=== PATIENT | male | born 1945 | race Caucasian/White ===

== ENCOUNTER 2019-07-21 11:34 | Outpatient (RCR) | payer MEDICARE, SELFPAY ==
[2019-04-29 14:50] LABS: INR 3.9; Prothrombin Time 38.8 Seconds (9.64-11.0)
[2019-05-18 10:26] LABS: INR 2.4; Prothrombin Time 24.1 Seconds (9.64-11.0)
[2019-06-16 10:56] LABS: Prothrombin Time 20.6 Seconds (9.64-11.0)
[2019-07-21 12:03] LABS: Prothrombin Time 30.1 Seconds (9.64-11.0)
== END 2019-07-28 23:59 | disposition home or self-care (01) ==
LOC: CHSLAB 11:34
PROVIDERS: PCP Family Medicine; Visit Provider Specialist
DX: Z79.01 Long term (current) use of anticoagulants (principal); I48.20 Chronic atrial fibrillation, unspecified
CPT/HCPCS: 36415; 85610

== ENCOUNTER 2019-11-16 07:34 | Outpatient (RCR) | payer MEDICARE, SELFPAY ==
[2019-08-20 11:04] LABS: INR 2.5; Prothrombin Time 25.1 Seconds (9.64-11.0)
[2019-09-18 10:22] LABS: INR 2.6; Prothrombin Time 25.8 Seconds (9.64-11.0)
[2019-10-28 11:34] LABS: INR 3.4; Prothrombin Time 34.1 Seconds (9.64-11.0)
[2019-11-16 08:00] LABS: INR 3.1; Prothrombin Time 30.8 Seconds (9.64-11.0)
== END 2019-11-18 23:59 | disposition home or self-care (01) ==
LOC: CHSLAB 07:34
PROVIDERS: PCP Family Medicine; Visit Provider Specialist
DX: Z79.01 Long term (current) use of anticoagulants (principal); I48.91 Unspecified atrial fibrillation
CPT/HCPCS: 36415; 85610

== ENCOUNTER 2020-02-03 08:07 | Outpatient (RCR) | payer MEDICARE, SELFPAY ==
[2019-12-09 09:36] LABS: INR 2.8; Prothrombin Time 28.2 Seconds (9.64-11.0)
[2020-01-06 10:55] LABS: INR 1.6; Prothrombin Time 17.1 Seconds (9.50-12.10)
[2020-01-27 07:44] LABS: Prothrombin Time 40.9 Seconds (9.50-12.10)
[2020-02-03 08:37] LABS: INR 3.2; Prothrombin Time 33.5 Seconds (9.50-12.10)
== END 2020-03-08 23:59 | disposition home or self-care (01) ==
LOC: CHSLAB 08:07
PROVIDERS: PCP Family Medicine; Visit Provider Specialist
DX: I48.20 Chronic atrial fibrillation, unspecified (principal); Z79.01 Long term (current) use of anticoagulants
CPT/HCPCS: 36415; 85610

== ENCOUNTER 2020-08-18 09:04 | Outpatient (RCR) | payer MEDICARE, SELFPAY ==
[2020-06-15 09:56] LABS: Prothrombin Time 20.9 Seconds (9.50-12.10)
[2020-07-13 10:31] LABS: INR 2.5; Prothrombin Time 25.1 Seconds (9.50-12.10)
[2020-08-18 09:26] LABS: INR 2.4; Prothrombin Time 24.2 Seconds (9.50-12.10)
== END 2020-09-13 23:59 | disposition home or self-care (01) ==
LOC: CHSLAB 09:04
PROVIDERS: PCP Family Medicine; Visit Provider Specialist
DX: I48.91 Unspecified atrial fibrillation (principal); Z51.81 Encounter for therapeutic drug level monitoring; Z79.01 Long term (current) use of anticoagulants
CPT/HCPCS: 36415; 85610

== ENCOUNTER 2020-11-15 10:22 | Outpatient (RCR) | payer MEDICARE, SELFPAY ==
[2020-09-20 10:44] LABS: INR 2.4; Prothrombin Time 24.3 Seconds (9.50-12.10)
[2020-11-01 10:07] LABS: INR 1.6; Prothrombin Time 16.3 Seconds (9.50-12.10)
[2020-11-15 10:48] LABS: INR 2.6; Prothrombin Time 26.9 Seconds (9.50-12.10)
== END 2020-12-19 23:59 | disposition home or self-care (01) ==
LOC: CHSLAB 10:22
PROVIDERS: PCP Family Medicine; Visit Provider Specialist
DX: I48.91 Unspecified atrial fibrillation (principal)
CPT/HCPCS: 36415; 85610

== ENCOUNTER 2021-01-18 10:03 | Outpatient (RCR) | payer MEDICARE, SELFPAY ==
[2020-12-20 10:37] LABS: INR 3.9; Prothrombin Time 38.7 Seconds (9.50-12.10)
[2021-01-18 10:48] LABS: INR 2.7; Prothrombin Time 27.9 Seconds (9.50-12.10)
== END 2021-03-20 23:59 | disposition home or self-care (01) ==
LOC: CHSLAB 10:03
PROVIDERS: PCP Family Medicine; Visit Provider Specialist
DX: I48.91 Unspecified atrial fibrillation (principal)
CPT/HCPCS: 36415; 85610

== ENCOUNTER 2021-10-09 08:30 | Outpatient (CLI) | payer MEDICARE, SELFPAY ==
[2021-10-09 18:26] LABS: Basophils Absolute Auto 0.1 K/mm3 (0.0-0.1); Basophils Percent Auto 0.7 % (0.2-1.2); Eosinophils Absolute Auto 0.3 K/mm3 (0-0.3); Eosinophils Percent Auto 3.6 % (0-4.4); Hematocrit 44.6 % (42.0-52.0); Hemoglobin 14.4 g/dL (14.0-18.0); Immature Granulocyte Absolute 0.06 K/mm3 (0.00-0.031); Immature Granulocyte Percent A 0.7 % (0-0.5); Lymphocytes Absolute Auto 1.54 K/mm3 (0.9-3.2); Lymphocytes Percent Auto 18.6 % (18.3-44.2); Mean Corpuscular HGB Conc 32.3 g/dl (32-36); Mean Corpuscular Hemoglobin 30.7 pg (26-34); Mean Corpuscular Volume 95.1 fl (80-100); Mean Platelet Volume 10.1 fl (7.4-10.4); Monocytes Absolute Auto 0.8 K/mm3 (0.1-0.6); Monocytes Percent Auto 9.9 % (2.6-8.5); Neutrophils Absolute Auto 5.5 K/mm3 (1.3-6.7); Neutrophils Percent Auto 66.5 % (45.5-73.1); Platelet Count Result 316 k/mm3 (150-375); Red Blood Count 4.69 M/mm3 (4.6-6.20); White Blood Count 8.3 K/mm3 (4.5-10.0)
[2021-10-09 19:56] LABS: Vitamin D 25 Hydroxy 54.8 ng/mL
[2021-10-09 20:14] LABS: Alanine Aminotransferase 23 U/L (6-50); Albumin Level 4.5 g/dL (3.5-5.1); Alkaline Phosphatase 53 U/L (38-126); Anion Gap 7 mmol/L (8-16); Aspartate Amino Transferase 43 U/L (17-59); Bilirubin,Total 0.6 mg/dL (0.2-1.3); Blood Urea Nitrogen 26 mg/dL (9-20); Calcium 9.4 mg/dL (8.4-10.2); Carbon Dioxide 25 mmol/L (22-30); Chloride 103 mmol/L (98-107); Cholesterol 133 mg/dL (0-200); Estimated Glomerular Filt Rate > 60; Glucose 108 mg/dL (65-110); HDL Direct 37 mg/dL; Potassium 4.4 mmol/L (3.4-5.0); Sodium 135 mmol/L (137-145); Triglycerides 143 mg/dL (<150)
[2021-10-09 20:25] LABS: LDL Cholesterol Direct 57 mg/dL
== END 2021-10-09 08:31 | disposition home or self-care (01) ==
LOC: ANHGOSHLAB 08:32
PROVIDERS: PCP Family Medicine; Visit Provider Nurse Practitioner
DX: E55.9 Vitamin D deficiency, unspecified (principal); E78.5 Hyperlipidemia, unspecified; I10 Essential (primary) hypertension
CPT/HCPCS: 36415; 80053; 80061; 82306; 85025

== ENCOUNTER 2022-05-30 12:32 | Outpatient (CLI) | payer MEDICARE, SELFPAY ==
[2022-05-30 20:44] LABS: Alanine Aminotransferase 29 U/L (6-50); Albumin Level 4.3 g/dL (3.5-5.1); Alkaline Phosphatase 55 U/L (38-126); Anion Gap 11 mmol/L (8-16); Aspartate Amino Transferase 36 U/L (17-59); Bilirubin,Total 0.6 mg/dL (0.2-1.3); Blood Urea Nitrogen 26 mg/dL (9-20); Calcium 9.7 mg/dL (8.4-10.2); Carbon Dioxide 22 mmol/L (22-30); Chloride 103 mmol/L (98-107); Estimated Glomerular Filt Rate > 60; Glucose 110 mg/dL (65-110); Potassium 3.9 mmol/L (3.4-5.0); Sodium 136 mmol/L (137-145)
== END 2022-05-30 12:33 | disposition home or self-care (01) ==
LOC: ANHGOSHLAB 12:33
PROVIDERS: PCP Family Medicine; Visit Provider Family Medicine
DX: I10 Essential (primary) hypertension (principal); Z79.899 Other long term (current) drug therapy
CPT/HCPCS: 36415; 80053

== ENCOUNTER → 2022-05-30 12:42 | Outpatient (CLI) | payer MEDICARE, SELFPAY ==
--- NOTE | ~2022-05-30 | XR_ITS ---
EXAMINATION: XR chest 2V DATE: 05/30/2022 12:54 INDICATION: Cough and shortness of breath TECHNIQUE: PA and lateral views of the chest were obtained. COMPARISON: None FINDINGS: Opacities in the right mid and lower lung zone consistent with moderate to large right pleural effusi on and associated atelectasis and/or pneumonia. The pleural effusion also extends extends along the p eriphery of the right upper lobe and to the apex. Mild linear discoid atelectasis at the left lower l romulo zone. No other airspace opacities, pulmonary edema, pneumothorax or left-sided pleural effusion. Heart size is normal. Mild to moderate thoracic spondylosis. IMPRESSION: 1. Unilateral moderate to large right pleural effusion with associated dependent compressive atelecta sis. Underlying pneumonia, malignancy or pulmonary infarct as etiology for the pleural effusion canno t be excluded. Consider diagnostic thoracentesis. Reviewed, dictated and finalized at location A. IMPRESSION: 1. Unilateral moderate to large right pleural effusion with associated dependen t compressive atelectasis. Underlying pneumonia, malignancy or pulmonary infarc t as etiology for the pleural effusion cannot be excluded. Consider diagnostic thoracentesis.
== END ==
PROVIDERS: PCP Family Medicine; Visit Provider Family Medicine
DX: R05.9 Cough, unspecified (principal); J90 Pleural effusion, not elsewhere classified
CPT/HCPCS: 71046

== ENCOUNTER 2022-05-30 16:43 | Emergency (ER) | payer MEDICARE, SELFPAY ==
[2022-05-30] VITALS (9 sets, daily range): BP systolic 104–130; BP diastolic 63–85; PULSE 60–83; RESP 18–22; O2SAT 95–97
--- NOTE | ~2022-05-30 | CT_ITS ---
EXAMINATION: CTA chest PE protocol DATE: 05/30/2022 17:33 CDT INDICATION: Large pleural effusion. TECHNIQUE: Computed tomographic angiography (CTA) of the chest was performed with 100 mL Omnipaque-35 0 intravenous contrast. The dose-length product was 378.02 mGy-cm. Maximum intensity projection 3D-re constructions of the aorta and other arteries were constructed by the technologist on a separate work station. Automated exposure control and iterative reconstruction technique were employed. COMPARISON: Chest x-ray dated 05/30/2022. FINDINGS: There is a moderate right pleural effusion with loculated margins and pleural enhancement, suspicious for empyema. There is consolidation of the right lower lobe. Study is technically adequate without evidence for pulmonary embolism. No left pleural effusion. No pneumothorax. Borderline heart size. There is atherosclerosis of the aorta and coronary arteries. No thoracic lymphadenopathy. Ther e is left basilar atelectasis. There is a 6 mm left lower lobe nodule. There is left lower lobe atele ctasis. There is severe thoracic spondylosis. IMPRESSION: 1. No evidence for pulmonary embolism. 2: Moderate right pleural effusion with pleural thickening, loculated margins and pleural enhancement , suspicious for empyema. 3: Consolidation of the right lower lobe may represent atelectasis and/or pneumonia. 4: Left lower lobe nodule measuring 6 mm. Recommend follow-up low dose CT chest in 6 months. Reviewed, dictated and finalized at location A. IMPRESSION: 1. No evidence for pulmonary embolism. 2: Moderate right pleural effusion with pleural thickening, loculated margins a nd pleural enhancement, suspicious for empyema. 3: Consolidation of the right lower lobe may represent atelectasis and/or pneum onia. 4: Left lower lobe nodule measuring 6 mm. Recommend follow-up low dose CT chest in 6 months.
--- NOTE | 2022-05-30 16:47 | ECG_ITS ---
Measurements Intervals [place] Rate: 78 P: [place]: 0 QRS: 4 QRSD: 106 T: 55 QT: 382 QTc: 437 Interpretive Statements ATRIAL FIBRILLATION NONSPECIFIC ST & T-WAVE ABNORMALITY ABNORMAL RHYTHM ECG NO PREVIOUS ECG AVAILABLE FOR COMPARISON Electronically Signed On 05-31-2022 18:13:07 CDT by Sidney Eden M.D.
[2022-05-30 17:05] LABS: Basophils Absolute Auto 0.1 K/mm3 (0.0-0.1); Basophils Percent Auto 0.7 % (0.2-1.2); Eosinophils Absolute Auto 0.2 K/mm3 (0-0.3); Eosinophils Percent Auto 2.5 % (0-4.4); Hematocrit 38.6 % (42.0-52.0); Hemoglobin 13.1 g/dL (14.0-18.0); Immature Granulocyte Absolute 0.05 K/mm3 (0.00-0.031); Immature Granulocyte Percent A 0.6 % (0-0.5); Lymphocytes Absolute Auto 1.69 K/mm3 (0.9-3.2); Lymphocytes Percent Auto 18.9 % (18.3-44.2); Mean Corpuscular HGB Conc 33.9 g/dl (32-36); Mean Corpuscular Hemoglobin 31.3 pg (26-34); Mean Corpuscular Volume 92.1 fl (80-100); Monocytes Percent Auto 10.6 % (2.6-8.5); Neutrophils Percent Auto 66.7 % (45.5-73.1); Platelet Count Result 365 k/mm3 (150-375); Red Blood Count 4.19 M/mm3 (4.6-6.20); Red Cell Distribution Width 13.8 % (11.5-14.5)
--- NOTE | 2022-05-30 17:05 | PC.NURSE ---
pt states he was sent here because he had cxr done today and it was abnormal. c/o sob x 2 months and productive cough. denies fever.
[2022-05-30 17:14] LABS: Alanine Aminotransferase 28 U/L (6-50); Albumin Level 4.4 g/dL (3.5-5.1); Alkaline Phosphatase 47 U/L (38-126); Anion Gap 8 mmol/L (8-16); Aspartate Amino Transferase 33 U/L (17-59); Bilirubin,Total 0.8 mg/dL (0.2-1.3); Blood Urea Nitrogen 28 mg/dL (9-20); Calcium 9.4 mg/dL (8.4-10.2); Carbon Dioxide 26 mmol/L (22-30); Chloride 102 mmol/L (98-107); Estimated CRCL calculation 52 ml/min; Estimated Glomerular Filt Rate > 60; Glucose 133 mg/dL (65-110); Potassium 3.8 mmol/L (3.4-5.0); Sodium 136 mmol/L (137-145)
[2022-05-30 17:20] LABS: Magnesium 1.6 mg/dL (1.6-2.3)
--- NOTE | 2022-05-30 17:24 | ED.SOB ---
HPI - SOB/Dyspnea General Chief Complaint: Shortness of Breath/Dyspnea <Billie Lerma PA-C - Last Filed: 05/31/22 02:28> Stated Complaint: SOB <Billie Lerma PA-C - Last Filed: 05/31/22 02:28> Time Seen by Provider: 05/30/22 16:57 <Billie Lerma PA-C - Last Filed: 05/31/22 02:28> History of Present Illness HPI Narrative: Patient is a 76-year-old male with a history of atrial fibrillation on warfarin here due to productive cough and shortness of breath over the past 2 months. Patient states that he has felt short of breath on minimal exertion and has had a cough productive of purulent sputum. When he coughs he has a pain in the center of his chest, but no pain at rest. He saw his primary care doctor today who ordered a chest x-ray, and he was found he had a large right-sided pleural effusion. He was told to come to the ED for a thoracentesis. Patient denies any smoking history. He has had no leg swelling, fevers or chills, nausea or vomiting, abdominal pain or rash. <Billie Lerma PA-C - Last Filed: 05/31/22 02:28> Related Data Home Medications: Home Medications Medication Instructions Recorded Confirmed brimonidine 0.1 % eye drops 1 drop ophthalmic (eye) Q8H 09/30/19 05/30/22 (Alphagan P) finasteride 5 mg tablet 5 mg PO DAILY 09/30/19 05/30/22 tamsulosin 0.4 mg capsule 0.4 mg PO DAILY 09/30/19 05/30/22 digoxin 250 mcg (0.25 mg) tablet 250 mcg PO DAILY 10/06/20 05/30/22 omega-3 fatty acids 1,000 mg 1,000 mg PO DAILY 10/06/20 05/30/22 capsule (Fish Oil Concentrate) warfarin 2 mg tablet 3 mg PO DAILY 10/06/20 05/30/22 fenofibrate 160 mg tablet 160 mg PO DAILY 05/30/22 05/30/22 losartan 100 1 tablet PO DAILY 05/30/22 05/30/22 mg-hydrochlorothiazide 25 mg tablet metoprolol succinate 200 mg 200 mg PO DAILY 05/30/22 05/30/22 tablet,extended release 24 hr <Billie Lerma PA-C - Last Filed: 05/31/22 02:28> Allergies/Adverse Reactions: Allergies Allergy/AdvReac Type Severity Reaction Status Date / Time No Known Allergies Allergy Verified 05/30/22 16:58 <Billie Lerma PA-C - Last Filed: 05/31/22 02:28> Review of Systems Review of Systems: All systems reviewed & are unremarkable except as noted in HPI and below <Billie Lerma PA-C - Last Filed: 05/31/22 02:28> [facility] Past Medical History Medical History: Medical History BPH w/o urinary obs/LUTS Chronic atrial fibrillation (~02/28/01) Chronic diarrhea Chronic low back pain without sciatica Collagenous colitis Dyslipidemia Essential (primary) hypertension Glaucoma History of COVID-19 01/2020 History of renal calculi Hx of colonic polyps Hx-TIA (transient ischemic attack) (~10/31/09) 2009 <Billie Lerma PA-C - Last Filed: 05/31/22 02:28> Surgical History Surgical History: Surgical History History of eye surgery (~1979) left - 1980s History of lumbar laminectomy (~04/2004) 04/2004 <Billie Lerma PA-C - Last Filed: 05/31/22 02:28> Family History Family History: Family History Other Carcinoma of colon Family history of coronary artery disease <Billie Lerma PA-C - Last Filed: 05/31/22 02:28> Social History Social History: Social History Smoking status: Never smoker Second hand tobacco smoke exposure: No Alcohol intake: current Alcohol use details: socially Substance use: never Substance use type: does not use Lack of Transportation: No Lack of Food: Never True Current Housing: I Have Housing Concerned About Future Housing: No Difficulty Paying Gas/Electric Bills: No Difficulty Paying for Meds: No Currently Unemployed: No Education: [employer]
[2022-05-30 17:30] LABS: INR 3.2; Prothrombin Time 31.9 Seconds (11.1-14.7)
[2022-05-30 17:31] LABS: NT Pro B Type Natriuretic Pept 920 pg/mL (19.9-100); Troponin I < 0.012 ng/mL (0.000-0.034)
[2022-05-30 17:31] LABS: Partial Thromboplastin Time 54.8 SECONDS (22.3-36.8)
[2022-05-30 18:25] LABS: Influenza A QL RT-PCR Negative (Negative); Influenza B QL RT-PCR Negative (Negative); SARS-CoV-2 RNA PCR Negative (Negative)
[2022-05-30] MEDS: PIPERACILLN/TAZ 3.375GM/NS50ML 3.375 GM/50 ML BAG IVPB (18:43)
[2022-05-31] VITALS (31 sets, daily range): BP systolic 122–129; BP diastolic 72–100; PULSE 56–81; RESP 17–29; TEMP 36.5; O2SAT 94–100
[2022-05-31 01:07] LABS: Digoxin < 0.4 ng/mL (0.8-2.0)
[2022-05-31] MEDS: cefTRIAXone 2 GM/NS 100 ML 2 GM/100 ML BAG IVPB (03:24)
[2022-05-31] MEDS: metroNIDAZOLE 500 MG/ISO 100ML 500 MG/100 ML BAG 100 MG IVPB (03:26)
--- NOTE | 2022-05-31 08:50 | PC.NURSE ---
Report given to BONITA Bliss from [facility] for direct admit. ETA for ALS ambulance is around 1100.
--- NOTE | 2022-05-31 08:59 | PC.NURSE ---
Patient ambulatory with no complaints of SOB or distress while ambulating.
== END 2022-05-31 09:01 | disposition short-term general hospital (02) ==
PROVIDERS: Emergency Medicine; Emergency Provider Physician Assistant; PCP Family Medicine
DX: J86.9 Pyothorax without fistula (principal); I48.20 Chronic atrial fibrillation, unspecified; I10 Essential (primary) hypertension; E78.5 Hyperlipidemia, unspecified; N40.1 Benign prostatic hyperplasia with lower urinary tract symptoms; N13.8 Other obstructive and reflux uropathy; H40.9 Unspecified glaucoma; Z86.16 Personal history of COVID-19; Z86.010 Personal history of colon polyps; Z86.73 Personal history of transient ischemic attack (TIA), and cerebral infarction without residual deficits; Z79.01 Long term (current) use of anticoagulants; R94.31 Abnormal electrocardiogram [ECG] [EKG]
CPT/HCPCS: 36415; 71275; 80053; 80162; 83735; 83880; 84484; 85025; 85610; 85730; 87040; 87636; 93005; 96365; 96367; 99285; J0696; J2543; Q9967

== ENCOUNTER 2022-06-22 14:33 | Emergency (ER) | payer MEDICARE, SELFPAY ==
--- NOTE | ~2022-06-22 | CT_ITS ---
EXAMINATION: CT brain wo con DATE: 06/22/2022 14:41 INDICATION: Slurred speech and left-sided loss of coordination TECHNIQUE: Computed tomography (CT) of the head was performed without intravenous contrast. Sagittal and coronal reconstructions were performed. The mA was adjusted according to patient size. Iterative reconstruction technique was employed. The dose-length product was 605.33 mGy-cm. COMPARISON: Brain MR dated 11/08/2009 FINDINGS: Small regions of encephalomalacia at the left parietal lobe and a couple very small regions of enceph alomalacia at the posterior left insula and adjacent temporal lobe along the inferior side of the john vian fissure consistent with chronic infarcts which are new since the prior MRI imaging. There is add itional mild scattered white matter hypoattenuation consistent with chronic small vessel ischemic dis ease. No acute intracranial hemorrhage, acute infarction or abnormal extra axial fluid collection. Ve ntricles are normal and symmetric. No mass/mass effect. Changes of bilateral intraocular lens replace ment. The orbits, paranasal sinuses and mastoid air cells are normal. Intracranial calcified cerebral atherosclerosis is noted. IMPRESSION: 1. No acute intracranial process. 2. 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 Reviewed, dictated and finalized at location A.
--- NOTE | ~2022-06-22 | CT_ITS ---
EXAMINATION: CTA brain carotid DATE: 06/22/2022 15:24 INDICATION: Left hemiparesis. Slurred speech. TECHNIQUE: Computed tomographic angiography (CTA) of the head was performed with 100 mL Omnipaque-350 intravenous contrast. CTA of the neck was performed with intravenous contrast. Automated exposure co ntrol and iterative reconstruction technique were employed. The dose-length product was 1218.43 mGy-c m. Maximum intensity projection and volume rendered 3D-reconstructions were created by the jose azevedo on a separate workstation. COMPARISON: Head CT 06/22/2022, brain MRI 11/08/2009 FINDINGS: HEAD CTA: There are infarcts involving the left temporal parietal region and left insula. There is no intracranial hemorrhage or abnormal intracranial mass lesion. There are scattered areas of low atten uation in the cerebral white matter. The ventricles are normal in size. There are likely changes of o cular lens replacement surgeries. The paranasal sinuses are clear. The mastoid air cells are normal. Right vertebral artery is dominant. There is thrombus in distal basilar artery and left P1 posterior cerebral artery with total occlusion of left P1 posterior cerebral artery. There is no significant st enosis of the intracranial internal carotid arteries or anterior or middle cerebral arteries. Anterio r communicating artery is normal. Posterior communicating arteries are not identified. NECK CTA: There is pleural thickening in right hemithorax. There is a multinodular goiter. There is a right internal jugular port with tip not included. There are two hyperenhancing mildly high left int ernal jugular chain lymph nodes with the larger measuring 12 x 10 mm. There is moderate stenosis of r ight vertebral artery origin. There is plaque in the proximal internal carotid arteries. There is 0% stenosis of the proximal right internal carotid artery relative to normal distal artery lumen diamete r (NASCET criteria). There is 0% stenosis of the proximal left internal carotid artery relative to no rmal distal artery lumen diameter. There is severe thoracic spondylosis. IMPRESSION: 1. 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 2. Thrombus in distal basilar artery and left P1 posterior cerebral artery with total occlusion of le ft P1 posterior cerebral artery. 3. Moderate stenosis origin right vertebral artery. 4. 0% stenosis of the proximal internal carotid arteries relative to normal distal artery lumen diame ters (NASCET criteria). 5. Hyperenhancing left internal jugular chain lymphadenopathy suspicious for metastatic disease or Ca stleman disease. 6. Pleural thickening in right hemithorax, consistent with metastatic disease versus mesothelioma. Reviewed, dictated and finalized at location E. IMPRESSION: 1. Infarcts involving left temporal parietal region and left insula, likely chr onic. 2. Thrombus in distal basilar artery and left P1 posterior cerebral artery with total occlusion of left P1 posterior cerebral artery. 3. Moderate stenosis origin right vertebral artery. 4. 0% stenosis of the proximal internal carotid arteries relative to normal dis galo artery lumen diameters (NASCET criteria). 5. Hyperenhancing left internal jugular chain lymphadenopathy suspicious for me tastatic disease or Castleman disease. 6. Pleural thickening in right hemithorax, consistent with metastatic disease v ersus mesothelioma.
[2022-06-22 14:45] VITALS: BP 134/76; PULSE 72; RESP 20; TEMP 36.2; O2SAT 98
[2022-06-22 14:49] VITALS: BP 106/67; PULSE 73; RESP 20; O2SAT 98
--- NOTE | 2022-06-22 14:49 | ECG_ITS ---
Measurements Intervals [place] Rate: 73 P: [place]: 0 QRS: 53 QRSD: 102 T: 63 QT: 393 QTc: 435 Interpretive Statements ATRIAL FIBRILLATION CANNOT RULE OUT SEPTAL INFARCT, AGE INDETERMINATE BASELINE ARTIFACT- I, II, III, AVL, AVF ABNORMAL ECG COMPARED TO ECG 05/30/2022 16:52:25 NO SIGNIFICANT CHANGES Electronically Signed On 06-22-2022 15:25:39 CDT by Yordan Rosado D.O.
--- NOTE | 2022-06-22 14:59 | ED.NEUROSD ---
HPI - Neuro Symptoms/Deficit General Chief Complaint: Suspected CVA Stated Complaint: neuro symptoms Time Seen by Provider: 06/22/22 14:42 History of Present Illness HPI Narrative: 76-year-old male presented to to the emergency department for evaluation for left-sided weakness that started approximately 130. Patient states he was using the restroom when he noticed he had onset of left hand weakness. Patient does have a prior history of TIA where his symptoms were dizziness. Patient does have a history of atrial fibrillation for which he is not chronically. Patient stopped his Coumadin for a procedure at [facility], patient had a port placed on his right chest. Patient had been off his Coumadin for approximately 1 week. Patient was scheduled to restart his Coumadin tonight. This was not called as a code stroke because the patient's symptoms were intermittent per EMS. Upon arrival to the urgent department patient did have left-sided ataxia and weakness Related Data Home Medications Medication Instructions Recorded Confirmed brimonidine 0.1 % eye drops 1 drop ophthalmic (eye) Q8H 09/30/19 06/20/22 (Alphagan P) finasteride 5 mg tablet 5 mg PO DAILY 09/30/19 06/20/22 tamsulosin 0.4 mg capsule 0.4 mg PO DAILY 09/30/19 06/20/22 digoxin 250 mcg (0.25 mg) tablet 250 mcg PO DAILY 10/06/20 06/20/22 omega-3 fatty acids 1,000 mg 1,000 mg PO DAILY 10/06/20 06/20/22 capsule (Fish Oil Concentrate) warfarin 2 mg tablet 3 mg PO DAILY 10/06/20 06/20/22 fenofibrate 160 mg tablet 160 mg PO DAILY 05/30/22 06/20/22 losartan 100 1 tablet PO DAILY 05/30/22 06/20/22 mg-hydrochlorothiazide 25 mg tablet metoprolol succinate 200 mg 200 mg PO DAILY 05/30/22 06/20/22 tablet,extended release 24 hr Allergies Allergy/AdvReac Type Severity Reaction Status Date / Time No Known Allergies Allergy Verified 06/22/22 15:07 Review of Systems Review of Systems: All systems reviewed & are unremarkable except as noted in HPI and below PMFSH Past Medical History Medical History BPH w/o urinary obs/LUTS Chronic atrial fibrillation (~02/28/01) Chronic diarrhea Chronic low back pain without sciatica Collagenous colitis Dyslipidemia Essential (primary) hypertension Glaucoma History of COVID-19 01/2020 History of renal calculi Hx of colonic polyps Hx-TIA (transient ischemic attack) (~10/31/09) 2009 Surgical History Surgical History History of eye surgery (~1979) left - 1980s History of lumbar laminectomy (~04/2004) 04/2004 Family History Family History Other Carcinoma of colon Family history of coronary artery disease Social History Social History Smoking status: Never smoker Second hand tobacco smoke exposure: No Alcohol intake: current Alcohol use details: socially Substance use: never Substance use type: does not use Lack of Transportation: No Lack of Food: Never True Current Housing: I Have Housing Concerned About Future Housing: No Difficulty Paying Gas/Electric Bills: No Difficulty Paying for Meds: No Currently Unemployed: No Education: Decline to Answer Difficulty w/ Childcare or Family Care: No Living arrangements: with family Additional living arrangements comments: Occupation/Education: retired Gender identity (if verbalized by the patient): Male Sexual Orientation (if Verbalized by the Patient): Straight or Heterosexual Spiritual care concerns: No Agree to blood products: Yes Exam Narrative: APPEARANCE: Well appearing, no pain, no distress, well-nourished. HEAD: normocephalic, atraumatic. EYES: PERRLA/EOMI, conjunctivae clear. NOSE: Normal no drainage EARS:TMS clear with good light reflex. THROAT: Pharynx clear, no exudate. NECK: Supple. No
[2022-06-22] MEDS: ASPIRIN 81 MG CHEWABLE TABLET 324 MG PO (15:04)
[2022-06-22 15:08] LABS: Basophils Percent Auto 0.5 % (0.2-1.2); Eosinophils Absolute Auto 0.2 K/mm3 (0-0.3); Eosinophils Percent Auto 2.7 % (0-4.4); Hematocrit 30.1 % (42.0-52.0); Hemoglobin 9.6 g/dL (14.0-18.0); Immature Granulocyte Absolute 0.04 K/mm3 (0.00-0.031); Immature Granulocyte Percent A 0.5 % (0-0.5); Lymphocytes Absolute Auto 0.89 K/mm3 (0.9-3.2); Lymphocytes Percent Auto 11.3 % (18.3-44.2); Mean Corpuscular HGB Conc 31.9 g/dl (32-36); Mean Corpuscular Hemoglobin 30.9 pg (26-34); Mean Corpuscular Volume 96.8 fl (80-100); Mean Platelet Volume 8.5 fl (7.4-10.4); Monocytes Absolute Auto 0.9 K/mm3 (0.1-0.6); Monocytes Percent Auto 11.8 % (2.6-8.5); Neutrophils Absolute Auto 5.8 K/mm3 (1.3-6.7); Neutrophils Percent Auto 73.2 % (45.5-73.1); Platelet Count Result 455 k/mm3 (150-375); Red Blood Count 3.11 M/mm3 (4.6-6.20); Red Cell Distribution Width 15.7 % (11.5-14.5); White Blood Count 7.9 K/mm3 (4.5-10.0)
[2022-06-22 15:14] LABS: Estimated CRCL calculation 57 ml/min; Estimated Glomerular Filt Rate > 60
[2022-06-22 15:23] LABS: Alanine Aminotransferase 23 U/L (6-50); Albumin Level 3.5 g/dL (3.5-5.1); Alkaline Phosphatase 74 U/L (38-126); Anion Gap 6 mmol/L (8-16); Aspartate Amino Transferase 35 U/L (17-59); Bilirubin,Total 0.5 mg/dL (0.2-1.3); Blood Urea Nitrogen 19 mg/dL (9-20); Calcium 8.6 mg/dL (8.4-10.2); Carbon Dioxide 28 mmol/L (22-30); Chloride 102 mmol/L (98-107); Estimated CRCL calculation 71 ml/min; Estimated Glomerular Filt Rate > 60; Glucose 105 mg/dL (65-110); Sodium 136 mmol/L (137-145)
[2022-06-22 15:26] LABS: INR 1.3; Prothrombin Time 16.6 Seconds (11.1-14.7)
[2022-06-22 15:27] LABS: Partial Thromboplastin Time 35.2 SECONDS (22.3-36.8)
[2022-06-22 15:55] VITALS: BP 138/87; PULSE 74; RESP 18; O2SAT 98
[2022-06-28 16:55] LABS: Glucose Point of Care 123 mg/dl (65-105)
== END 2022-06-22 16:21 | disposition short-term general hospital (02) ==
PROVIDERS: Emergency Provider Emergency Medicine; PCP Family Medicine
DX: I63.02 Cerebral infarction due to thrombosis of basilar artery (principal); I63.332 Cerebral infarction due to thrombosis of left posterior cerebral artery; R29.709 NIHSS score 9; I48.20 Chronic atrial fibrillation, unspecified; E78.5 Hyperlipidemia, unspecified; I10 Essential (primary) hypertension; N40.0 Benign prostatic hyperplasia without lower urinary tract symptoms; H40.9 Unspecified glaucoma; Z86.16 Personal history of COVID-19; Z86.010 Personal history of colon polyps; Z86.73 Personal history of transient ischemic attack (TIA), and cerebral infarction without residual deficits; Z79.01 Long term (current) use of anticoagulants
CPT/HCPCS: 36415; 70450; 70496; 70498; 80053; 82948; 85025; 85610; 85730; 93005; 99285; A9270; Q9967

== ENCOUNTER 2022-07-06 13:10 | Outpatient (CLI) | payer MEDICARE, SELFPAY ==
--- NOTE | ~2022-07-06 | XR_ITS ---
Clinical Indication: Empyema PA and lateral views of the chest: Comparison: 05/30/2022 Findings: Small right pleural effusion is present, with patchy right basilar consolidation. Left lung is essentially clear. Right-sided Mediport in place. Cardiomediastinal silhouette is within normal limits. Bones and soft tissues are unremarkable. Impression: Small right pleural effusion, possibly partially loculated laterally. Patchy right basilar consolidation, which could reflect atelectasis and/or pneumonia. Right-sided Mediport in place. Reviewed, dictated and finalized at location M. Impression: Small right pleural effusion, possibly partially loculated laterally. Patchy right basilar consolidation, which could reflect atelectasis and/or pneu monia. Right-sided Mediport in place.
== END 2022-07-06 13:11 | disposition home or self-care (01) ==
PROVIDERS: PCP Family Medicine
DX: J86.9 Pyothorax without fistula (principal); Z98.890 Other specified postprocedural states; J90 Pleural effusion, not elsewhere classified
CPT/HCPCS: 71046

== ENCOUNTER → 2022-08-16 11:18 | Outpatient (CLI) | payer MEDICARE, SELFPAY ==
--- NOTE | ~2022-08-16 | US_ITS ---
Thyroid ultrasound. Clinical History: Thyroid nodule Findings: Real-time sonography of the thyroid gland was performed. The right lobe measures 4.9 x 1.9 x 2.1 cm. The left lobe measures 5.4 x 2.7 x 1.8 cm. The isthmus is 3 mm in AP diameter. There is an 8 mm hypoechoic, probably cystic nodule at the right lower pole. There is a 9 mm slightly hypoechoic solid nodule at the right mid to upper pole posteriorly. There is a 2.6 x 2.2 x 2.3 cm mixed solid and cystic nodule at the left lower pole. There is a 0.5 cm hypoechoic nodule at the left mid to upper pole. Impression: 2.6 cm mixed solid and cystic nodule at the left lower pole. FNA should be considered to establish a histologic diagnosis. Reviewed, dictated and finalized at [facility]. Impression: 2.6 cm mixed solid and cystic nodule at the left lower pole. FNA should be cons idered to establish a histologic diagnosis.
== END ==
PROVIDERS: PCP Family Medicine
DX: E04.1 Nontoxic single thyroid nodule (principal)
CPT/HCPCS: 76536

== ENCOUNTER 2022-10-17 08:24 | Outpatient (CLI) | payer MEDICARE, SELFPAY ==
[2022-10-17 19:41] LABS: Cholesterol 105 mg/dL (0-200); HDL Direct 32 mg/dL; Triglycerides 112 mg/dL (<150)
[2022-10-17 19:52] LABS: LDL Cholesterol Direct 46 mg/dL
[2022-10-17 20:12] LABS: Prostate Specific Antigen 0.8 ng/mL (< OR = 4.0)
[2022-10-17 20:15] LABS: Vitamin D 25 Hydroxy 49.7 ng/mL
[2022-10-17 20:26] LABS: Thyroid Stimulating Hormone Reflex 0.915 uIU/mL (0.465-4.68)
== END 2022-10-17 08:25 | disposition home or self-care (01) ==
PROVIDERS: PCP Family Medicine; Visit Provider Family Medicine
DX: E78.5 Hyperlipidemia, unspecified (principal); E53.8 Deficiency of other specified B group vitamins; E55.9 Vitamin D deficiency, unspecified; I10 Essential (primary) hypertension; Z12.5 Encounter for screening for malignant neoplasm of prostate
CPT/HCPCS: 36415; 80061; 82306; 82607; 84153; 84443; G0103